=== PATIENT | female | born 1960 | race Caucasian/White ===

== ENCOUNTER 2022-01-08 08:34 | Emergency (ER) | payer OTHER, SELFPAY ==
[2022-01-08] VITALS (7 sets, daily range): BP systolic 125–188; BP diastolic 51–97; PULSE 61–72; RESP 12–21; TEMP 36.2; O2SAT 94–99; BMI 42.5
--- NOTE | 2022-01-08 09:11 | CTR_ITS ---
PROCEDURE INFORMATION: Exam: CT Abdomen And Pelvis With Contrast Exam date and time: 01/08/2022 12:16 PM Age: 61 years old Clinical indication: Abdominal pain; Localized; Left lower quadrant (llq); TECHNIQUE: Imaging protocol: Computed tomography of the abdomen and pelvis with contrast. Radiation optimization: All CT scans at this facility use at least one of these dose optimization techniques: automated exposure control; mA and/or kV adjustment per patient size (includes targeted exams where dose is matched to clinical indication); or iterative reconstruction. Contrast material: OMNI 350; Contrast volume: 80 ml; Contrast route: INTRAVENOUS (IV); COMPARISON: No relevant prior studies available. RADIATION DOSE METRICS: Total DLP (mGy-cm): 1213.9 FINDINGS: Lungs: 3 mm noncalcified nodular density in the right lower lobe at the right lung base. Liver: Normal. No mass. Gallbladder and bile ducts: Normal. No calcified stones. No ductal dilation. Pancreas: Normal. No ductal dilation. Spleen: Normal. No splenomegaly. Adrenal glands: Normal. No mass. Kidneys and ureters: Sub cm cyst in the right kidney has benign features. Follow-up is not necessary. Stomach and bowel: Moderate stool burden. Appendix: No evidence of appendicitis. Intraperitoneal space: Unremarkable. No free air. No significant fluid collection. Vasculature: Unremarkable. No abdominal aortic aneurysm. Lymph nodes: Unremarkable. No enlarged lymph nodes. Urinary bladder: Unremarkable as visualized. Reproductive: The uterus is not visualized, consistent with hysterectomy. Bones/joints: There are degenerative changes in the visualized spine. Mild grade 1 degenerative anterolisthesis of L5 on S1. Soft tissues: Unremarkable. CT/CT abdomen pelvis w con* [id number] IMPRESSION: No acute findings. There is a 3 mm noncalcified nodule at the right lung base.For patients at low risk (minimal or absent history of smoking and of other known risk factors), no routine follow-up is indicated. For patients at high risk (history of smoking or of other known risk factors), consider optional CT Chest at 12 months. (Reference: Nura) COMMENTS: Consistent with the [employer]'s Incidental Findings Committee white paper (J Am Armando Radiol 2018): Any incidental renal lesion less than 1 cm or classified as too small to characterize, or any incidental cystic renal lesion characterized as simple-appearing, is likely benign. No follow-up imaging is recommended for these lesions per consensus recommendations based on imaging criteria. REFERENCES: Nura Donahue, et al. Guidelines for Management of Incidental Pulmonary Nodules Detected on CT Images: From the Fleischner Society 2017. Radiology. 2017;284(1):228-243.
--- NOTE | 2022-01-08 09:50 | ECG_ITS ---
[facility] Test Date: 2022-01-08 Pat Name: Radha Suárez Department: Room: Gender: Female [employer]: : 1960 Requested By: Fritz Muñoz Order Number: [id number] Marvin MD: Radha Veronica M.D. Measurements Intervals Howes Rate: 67 P: -19 FL: 170 QRS: -51 QRSD: 106 T: 54 QT: 432 QTc: 458 Interpretive Statements SINUS RHYTHM LOW QRS VOLTAGE IN PRECORDIAL LEADS [QRS DEFLECTION < 1.0 mV IN CHEST LEADS] LEFT ANTERIOR FASCICULAR BLOCK [QRS AXIS <= -45, QR IN I, RS IN II] POSSIBLE ANTERIOR MYOCARDIAL INFARCTION , OF INDETERMINATE AGE [30 ms Q WAVE IN V3/V4, OR R < 0.2 mV IN V4] No previous ECG available for comparison Electronically Signed On 01-08-2022 13:03:00 CDT by Radha Veronica M.D. [id number] aury
--- NOTE | 2022-01-08 09:54 | ED_ITS ---
HPI - Abdominal Pain General: Chief Complaint: Abdominal Pain Stated Complaint: left side pain Time Seen by Provider: 01/08/22 09:31 History of Present Illness: 61-year-old female presenting today with left upper quadrant abdominal pain. Patient notes onset of symptoms several days a go. Symptoms have been getting gradually worse. Have been constant. Not coming and going. Symptoms are nonradiating. She notes that she has had splenic problems in the past. She was unable to elaborate on this. She notes a significant surgical history of hysterectomy. No other significant surgical history. No associated nausea or vomiting. Is able to eat per her baseline. She denies fevers or chills. She denies chest pain or shortness of breath. She denies new pain or swelling in the lower extremities. She denies history of blood clots. Review of Systems General: Reports: 10 or more systems reviewed and unremarkable except in HPI and below Physical Exam Const: COMMON NORMALS: no acute distress, patient oriented x3 and alert GENERAL APPEARANCE: cooperative ORIENTATION/CONSCIOUSNESS: Yes awake, Yes oriented to person, Yes oriented to place and Yes oriented to time HENMT: COMMON NORMALS: normocephalic, atraumatic, external ears normal, Normal external nose present and moist oral mucous membranes HEAD & SCALP: normal to inspection, normocephalic and atraumatic NOSE: Normal external nose present GENERAL EAR: hearing grossly impaired EXTERNAL EAR: Yes external ears normal Eye: COMMON NORMALS: Equal, round and reactive pupils present, EOMs intact bilaterally, conjunctivae normal and no scleral icterus GENERAL EYE: appearance normal, both eyes and all related structures EYELID: eyelids normal CONJUNCTIVA: Yes conjunctivae normal SCLERA: sclerae normal PUPIL: Yes Equal, round and reactive pupils present Neck/C-Spine: COMMON NORMALS: full ROM, supple and no JVD GENERAL: Yes normal visual inspection Lymph: LYMPHATIC: no lymphadenopathy noted and no lymphedema noted Chest: COMMONS NORMALS: normal inspection of the chest Resp: COMMON NORMALS: normal respiratory effort, No retractions and No use of accessory muscles Cardio: COMMON NORMALS: no JVD, regular rate and regular rhythm RATE: regular rate RHYTHM: regular rhythm GI: COMMON NORMALS: Normal to inspection, nondistended, normoactive bowel sounds present : COMMON NORMALS: Yes no CVA tenderness BLADDER/KIDNEY EXAM: Yes no CVA tenderness Back/Pelvis: COMMON NORMALS: no CVA tenderness and thoracic and lumbar spine normal to inspection Extremity: COMMON NORMALS: normal to inspection, full ROM and capillary refill normal GENERAL: Yes normal exam except as noted Neuro: COMMON NORMALS: patient oriented x3, CN's II-XII intact bilaterally, moves all extremities, no focal motor deficits, no sensory deficits noted and gait normal SENSORIUM/ORIENTATION: Yes alert, Yes oriented to person, Yes oriented to place and Yes oriented to time Psych: COMMON NORMALS: mental status grossly normal, Normal thought process present, cooperative and normal affect THOUGHT PROCESS: Normal thought process present Skin: COMMON NORMALS: no rashes or lesions noted and no wounds GENERAL SKIN EXAM: no rashes or lesions noted Course Vital Signs: Vital signs: Vital Signs Temperature 97.2 F L 01/08/22 08:39 Pulse Rate 69 01/08/22 13:08 Respiratory Rate 21 H 01/08/22 13:08 Blood Pressure 159/88 01/08/22 13:08 Pulse Oximetry 95 01/08/22 13:08 Oxygen Delivery Me thod 01/08/22 12:30 MDM - Abdominal Pain Medical Decision Making 61-year-old female presenting today with left upper quadrant abdominal pain. EKG without ST wave changes suggest acute ischemia. CBC is unremarkable except for thrombocytopeni. CMP is unremarkable. CT abdomen pelvis without acute abnormalities. Suspect gastritis. Will start patient on Carafate as well as omeprazole for the same. Patient was given strict return precautions and recommended routine outpatient follow-up. Lab Data : 01/08/22 10:50 01/08/22 10:50 Labs/Radiology: Radiology Impressions Abdomen/Pelvis CT 01/08/22 09:11 IMPRESSION: No acute findings. There is a 3 mm noncalcified nodule at the right lung base.For patients at low risk (minimal or absent history of smoking and of other known risk factors), no routine follow-up is indicated. For patients at high risk (history of smoking or of other known risk factors), consider optional CT Chest at 12 months. (Reference: Nura) COMMENTS: Consistent with the [employer]'s Incidental Findings Committee white paper (J Am Armando Radiol 2018): Any incidental renal lesion less than 1 cm or classified as too small to characterize, or any incidental cystic renal lesion characterized as simple-appearing, is likely benign. No follow-up imaging is recommended for these lesions per consensus recommendations based on imaging criteria. REFERENCES: Nura Donahue, et al. Guidelines for Management of Incidental Pulmonary Nodules Detected on CT Images: From the Fleischner Society 2017. Radiology. 2017;284(1):228-243. Laboratory Results WBC 8.6 10^3/uL (4.0-10.0) 01/08/22 10:50 RBC 4.51 10^6/uL (4.1-5.3) 01/08/22 10:50 Hgb 12.2 g/dL (11.5-15.3) 01/08/22 10:50 Hct 39.3 % (37.0-47.0) 01/08/22 10:50 MCV 87.1 fl (81-99) 01/08/22 10:50 MCH 27.1 pg (28.0-34.0) L 01/08/22 10:50 MCHC 31.0 g/dL (30.0-36.0) 01/08/22 10:50 RDW 15.1 % (12.1-15.1) 01/08/22 10:50 Plt Count 86 10^3/cmm (130-400) L 01/08/22 10:50 MPV 11.4 fL (7.4-10.4) H 01/08/22 10:50 Neut % (Auto) 65.9 % 01/08/22 10:50 Lymph % (Auto) 20.3 % 01/08/22 10:50 [place] % (Auto) 7.3 % 01/08/22 10:50 Eos % (Auto) 5.6 % 01/08/22 10:50 Baso % (Auto) 0.7 % 01/08/22 10:50 Neut # (Auto) 5.67 10^3/uL (1.8-7.7) 01/08/22 10:50 Lymph # (Auto) 1.8 10^3/uL (0.8-4.8) 01/08/22 10:50 [place] # (Auto) 0.6 10^3/uL (0.2-0.9) 01/08/22 10:50 Eos # (Auto) 0.5 10^3/uL (0.0-0.8) 01/08/22 10:50 Baso # (Auto) 0.1 10^3/uL (0.0-0.1) 01/08/22 10:50 Nucleated RBC % (auto) 0 % 01/08/22 10:50 Nucleated RBCs # 0.0 /100WBC 01/08/22 10:50 Sodium 139 mmol/L (136-145) 01/08/22 10:50 Potassium 4.3 mmol/L (3.5-5.1) 01/08/22 10:50 Chloride 103 mmol/L (98-107) 01/08/22 10:50 Carbon Dioxide 26 mmol/L (22-29) 01/08/22 10:50 Anion Gap 14.3 (5-19) 01/08/22 10:50 BUN 18 mg/dL (8-23) 01/08/22 10:50 Creatinine 0.8 mg/dL (0.5-0.9) 01/08/22 10:50 GFR Calculation 72.7 mL/min (90-130) L 01/08/22 10:50 Glucose 90 mg/dL (65-115) 01/08/22 10:50 Calculated Osmolality 289 mOsm/kg (285-295) 01/08/22 10:50 Calcium 9.4 mg/dL (8.5-10.5) 01/08/22 10:50 Total Bilirubin 0.4 mg/dL (0.15-1.2) 01/08/22 10:50 AST 19 U/L (0-32) 01/08/22 10:50 ALT 16 U/L (0-33) 01/08/22 10:50 Alkaline Phosphatase 75 U/L (35-105) 01/08/22 10:50 Total Protein 6.9 g/dL (6.6-8.7) 01/08/22 10:50 Albumin 4.2 g/dL (3.5-5.2) 01/08/22 10:50 Globulin 2.7 g/dL (1.3-4.6) 01/08/22 10:50 Lipase 37 U/L (13-60) 01/08/22 10:50 Urine Color Straw (Yellow) 01/08/22 09:59 Urine Appearance Sl hazy (CLEAR) 01/08/22 09:59 Urine pH 7 (5-7) 01/08/22 09:59 Ur Specific [place] 1.010 (1.005-1.030) 01/08/22 09:59 Urine Protein Neg (Negative) 01/08/22 09:59 Urine Glucose (UA) Norm (Normal) 01/08/22 09:59 Urine Ketones Negative (Negative) 01/08/22 09:59 Urine Blood 3+ (Negative) H 01/08/22 09:59 Urine Nitrate Negative (Negative) 01/08/22 09:59 Urine Bilirubin Neg (Negative) 01/08/22 09:59 Urine Urobilinogen Norm mg/dL (Negative) 01/08/22 09:59 Ur Leukocyte Esterase Negative (Negative) 01/08/22 09:59 Urine RBC 5-10 /hpf (0-2) H 01/08/22 09:59 Urine WBC 0-4 /hpf (0-5) H 01/08/22 09:59 Ur Squamous Epith Cells 0-4 /hpf (0-5) H 01/08/22 09:59 Amorphous Sediment Not Reportable 01/08/22 09:59 Urine Bacteria 1+ /hpf (NONE) H 01/08/22 09:59 Discharge Plan Discharge Patient Disposition: Home Clinical Impression: Gastritis Condition: Stable Prescriptions: New Carafate 100 mg/mL suspension 1 g PO TID 28 Days Qty: 840 0RF pantoprazole 40 mg tablet,delayed release (DR/EC) 40 mg PO DAILY Qty: 30 0RF Discharge Orders: Discharge ED (Routine); Ordered 01/08/22 Ordered By: Fritz Muñoz Discharge Diet: Advance as tolerated Discharge Activity: Resume usual activity Patient Instructions: Gastritis (ED) Coding Level of Care Code ED Barrel Bung Remover And Dumper for Chg Fwd Exam Comprehensive
[2022-01-08] MEDS: acetaminophen 500 mg Tablet 1000 MG PO (10:09)
[2022-01-08] MEDS: ketorolac 30 mg/mL INJ 15 MG IVP (10:09)
[2022-01-08 10:56] LABS: Basophils # 0.1 10^3/uL (0.0-0.1); Basophils % 0.7 %; Eosinophils # 0.5 10^3/uL (0.0-0.8); Eosinophils % 5.6 %; Hematocrit 39.3 % (37.0-47.0); Hemoglobin 12.2 g/dL (11.5-15.3); Lymphocytes # 1.8 10^3/uL (0.8-4.8); Lymphocytes % 20.3 %; Mean Corpuscular Hemoglobin 27.1 pg (28.0-34.0); Mean Corpuscular Volume 87.1 fl (81-99); Mean Platelet Volume 11.4 fL (7.4-10.4); Monocytes # 0.6 10^3/uL (0.2-0.9); Monocytes % 7.3 %; Neutrophils # 5.67 10^3/uL (1.8-7.7); Neutrophils % 65.9 %; Nucleated Red Blood Cells % 0 %; Platelet Count 86 10^3/cmm (130-400); Red Blood Count 4.51 10^6/uL (4.1-5.3); Red Cell Distribution Width 15.1 % (12.1-15.1); White Blood Count 8.6 10^3/uL (4.0-10.0)
[2022-01-08 11:13] LABS: Alanine Aminotransferase 16 U/L (0-33); Albumin Level 4.2 g/dL (3.5-5.2); Alkaline Phosphatase 75 U/L (35-105); Anion Gap 14.3 (5-19); Aspartate Amino Transferase 19 U/L (0-32); Blood Urea Nitrogen 18 mg/dL (8-23); Calcium 9.4 mg/dL (8.5-10.5); Carbon Dioxide 26 mmol/L (22-29); Chloride 103 mmol/L (98-107); Globulin 2.7 g/dL (1.3-4.6); Glomerular Filtration Rate 72.7 mL/min (90-130); Glucose 90 mg/dL (65-115); Lipase 37 U/L (13-60); Osmolality Calculated 289 mOsm/kg (285-295); Potassium 4.3 mmol/L (3.5-5.1); Sodium 139 mmol/L (136-145); Total Bilirubin 0.4 mg/dL (0.15-1.2); Total Protein 6.9 g/dL (6.6-8.7)
[2022-01-08] MEDS: HYDROmorphone 1 mg/mL INJ 1 mL IVP (11:39)
[2022-01-08 11:58] LABS: Urine Appearance SL Hazy (CLEAR); Urine Color Straw (Yellow); pH Urine 7 (5-7)
[2022-01-08 11:59] LABS: Add Urine Culture? No; Add Urine Microscopic? YES; Bacteria Urine 1+ /hpf; Bilirubin Urine Neg (Negative); Blood Urine 3+ (Negative); Glucose Urine UA Norm (Normal); Ketones Urine Negative (Negative); Leukocyte Esterase Urine Negative (Negative); Nitrate Urine Negative (Negative); Protein Urine Neg (Negative); Squamous Epithelial Cell Urine 0-4 /hpf (0-5); Urobilinogen Urine Norm (Negative); WBC Urine 0-4 /hpf (0-5)
[2022-01-08] MEDS: iohexol 350 mg/mL 100 mL Btl IV (12:18)
[2022-01-08] MEDS: lidocaine 2% viscous 15 ML, aluminum-mag hydrox-simethicon 30 ML, sucralfate oral liq 1 GM PO (13:00)
--- NOTE | 2022-01-11 09:05 | DCPLANNER ---
Addendum entered by Sharlene Guerrero 01/20/22 08:44: Patients appointment was cancelled Addendum entered by Sharlene Guerrero 01/13/22 07:30: Patient has a follow up appointment scheduled for Monday, January 17, 2022 at 9:[address] Alvarez at general surgery. Clinic will call patient with appointment information. Original Note: right of way manager had message to schedule a follow up appointment for patient with general surgery. right of way manager sent patients information to the front office staff at general surgery. Patients information will be printed and reviewed. Clinic will call patient with appointment information.
== END 2022-01-08 13:10 | disposition home or self-care (01) ==
PROVIDERS: Emergency Provider Emergency Medicine
DX: K29.70 Gastritis, unspecified, without bleeding (principal)
CPT/HCPCS: 36415; 74177; 80053; 81001; 83690; 85025; 93005; 96374; 96375; 99285; J1170; J1885; Q9967